=== PATIENT | male | born 1980 | race Caucasian/White ===

== ENCOUNTER 2017-01-06 16:22 | Emergency (ER) | payer OTHER ==
[2017-01-06] MEDS ORDERED: 0.9 % SODIUM CHLORIDE 1,000 ML IV ONE (16:27)
[2017-01-06] MEDS: methylPREDNISolone SOD SUCC 125 MG/2 ML VIAL IVP ONE (16:30)
[2017-01-06] MEDS: diphenhydrAMINE HCL 50 MG/ML VIAL IVP ONE (16:30)
[2017-01-06] MEDS: 0.9 % SODIUM CHLORIDE 1,000 ML IV ONE (16:35)
[2017-01-06 18:07] VITALS: BP 135/80
--- NOTE | 2017-01-07 05:29 | ED Physician Documentation ---
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 LE's , had chest pressure, now gone, no soa Onset: minutes (30) Timing: still present Duration: persistent since (stings) Location: LUE, RLE, LLE Quality: itchy, painful Identified Cause?: Yes (bee stings) When Did Symptoms Start: 01/06/17 Where: home Context: Medication Exposure: none Context: Food Exposure: none Context: Other Exposure: bee sting Further Comments: no - ROS CONST: none CVS/RESP: none EYES/ENT: none GI/: none MS/SKIN/LYMPH: other (angioedema left arm) NEURO/PSYCH: none - PAST HX Past History: none Other History: none Surgeries/Procedures: No Immunizations: referred to PCP - SOCIAL HX Smoking History: chew Alcohol Use: occasionally Drug Use: none - FAMILY HX Family History: none - VITAL SIGNS Vital Signs: Vital Signs Temp Pulse Resp BP Pulse Ox 98.6 F 53 L 18 135/80 99 01/06/17 18:05 01/06/17 18:05 01/06/17 18:05 01/06/17 18:05 01/06/17 18:05 - REVIEWED ASSESSMENTS Nursing Assessment Reviewed: Yes Vitals Reviewed: Yes Progress - Results/Orders Results/Orders: no testing ordered - Progress Progress: Pt. given 1 liter NS IV, 50 mg Benadryl IV, 125 mg Solu Medrol IV with improvement in angioedema in ER. Critical Care Note - Critical Care Note Total Time (mins): 0 ED Results Lab/Radiology - Lab Results Lab Results: none ordered - Radiology Radiology Impressions: none ordered - Orders Orders: ED Orders Category Date Time Status Place IV Lock 1T Care 01/06/17 16:27 Active 0.9 % Sodium Chloride [Normal Saline] 1,000 ml Med 01/06/17 16:27 Discontinued IV .STK-MED 0.9 % Sodium Chloride [Normal Saline] 1,000 ml Med 01/06/17 16:27 Discontinued IV Q1H diphenhydrAMINE HCL [Benadryl] Med 01/06/17 16:27 Discontinued 50 mg IVP NOW ONE methylPREDNISolone SOD SUCC [Solu-MEDROL] Med 01/06/17 16:27 Discontinued 125 mg IVP NOW ONE Skin Rash Physical Exam - EXAM General Appearance: alert, moderate distress Skin: warm,dry, tender indurated area (left UE with multiple sting sites) Location: extremities Character: asymmetric, patchy Symptoms: warmth, tenderness, swelling, induration Extremities: nml ROM EENT: eyes nml inspection, lips nml, gums nml, pharynx nml Neck: trachea midline, no swelling, stiff neck Respiratory: no resp distress, chest non-tender, breath sounds normal CVS: reg. rate & rhythm, heart sounds nml Abdomen: non-tender, no organomegaly, nml bowel sounds, no distention Neuro/Psych: oriented x3, CN's nml as tested, motor nml, sensation nml, mood/ affect nml Discharge Clincal Impression: Angioedema Qualifiers: Encounter type: initial encounter Qualified Code(s): T78.3XXA - Angioneurotic edema, initial encounter Referrals: Primary Doctor,No [Primary Care Provider] - 2 Days Comments: discharged with script for prednisone taper Condition: Stable Disposition: 01 HOME, SELF-CARE Decision to Admit: NO Decision Time: 17:45
== END 2017-01-06 18:05 | disposition home or self-care (01) ==
LOC: ED 16:22
DX: T78.3XXA Angioneurotic edema, initial encounter (principal); X58.XXXA Exposure to other specified factors, initial encounter; Y93.9 Activity, unspecified; Y99.9 Unspecified external cause status
CPT/HCPCS: 96361; 96374; 96375; 99283; J1200; J2930; J7030; S1016